=== PATIENT | male | born 1995 | race Caucasian/White ===

== ENCOUNTER 2017-06-18 21:40 | Emergency (ER) | payer OTHER ==
[2017-06-18 21:50] VITALS: BP 144/82; PULSE 65; RESP 18; TEMP 97.9; O2SAT 98
--- NOTE | 2017-06-18 22:02 | EDPHY ---
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 He slice this on a daily slicer at 7:00 a.m.. The he had worked all day in could not come to the emergency room until now it has been 15 hours. Of note the thumb laceration is avulsion of the tip of the thumb. There is no laceration no close. The nail bed is intact. The wound is clean. And not bleeding. Will provide an appropriate dressing. Will refer to Hand surgery for follow-up. Past Medical History: No significant medical history Past Surgical History: No significant surgical history Social History: Daily tobacco use, denies illicit drugs or alcohol. Family History: Noncontributory ROS REVIEW OF SYSTEMS: A comprehensive 10 point review of systems is otherwise negative aside from elements mentioned in the history of present illness. Exam Constitutional triage nursing summary reviewed, vital signs reviewed, awake/ alert. Eyes normal conjunctivae and sclera, EOMI, PERRLA. HENT normal inspection, atraumatic, moist mucus membranes, no epistaxis, neck supple/ no meningismus, no raccoon eyes. Respiratory clear to auscultation bilaterally, normal breath sounds, no respiratory distress, no wheezing. Cardiovascular rate normal, regular rhythm, no murmur, no edema, distal pulses normal. Gastrointestinal soft, non-tender, no rebound, no guarding, normal bowel sounds, no distension, no pulsatile mass. Genitourinary no CVA tenderness. Musculoskeletal no midline vertebral tenderness, full range of motion, no calf swelling, no tenderness of extremities, no meningismus, good pulses, neurovascularly intact. Right hand: Distal aspect of the thumb lateral aspect there is an avulsion laceration. Avulsion tip of the lateral left thumb. No nail bed involvement. No arterial vomit. No laceration needs to be repaired. Skin pink, warm, & dry, no rash, skin atraumatic. Neurologic awake, alert and oriented x 3, AAOx3, moves all 4 extremities equally, motor intact, sensory intact, CN II-XII intact, normal cerebellar, normal vision, normal speech. Psychiatric normal mood/affect. Heme/Lymph/Immune no lymphadenopathy. Differential Diagnosis: Includes but is not limited to in a particular order thumb avulsion laceration the thumb tip:, soft tissue injury Medical Decision Making: This patient appropriate dressing and finger splint. Will refer to Hand surgery. He does not need anything sutured here in emergency room is tetanus shot is up- to-date. Patient understands to keep it clean, dry and intact. Source: Patient - Personal History Current Tetanus/Diphtheria Vaccine: Unsure Current Tetanus Diphtheria and Acellular Pertussis (TDAP): Unsure - Medical/Surgical History Hx Asthma: No Hx Chronic Respiratory Disease: No Hx Diabetes: No Hx Cardiac Disease: No Hx Renal Disease: No Hx Cirrhosis: No Hx Alcoholism: No Hx HIV/AIDS: No Hx Splenectomy or Spleen Trauma: No Other PMH: DEPRESSION. VERICOUS VEIN REMOVAL - Social History Smoking Status: Heavy smoker Constitutional: Initial Vital Signs Temperature (C) 36.6 C 06/18/17 21:47 Heart Rate 65 06/18/17 21:47 Respiratory Rate 18 06/18/17 21:47 Blood Pressure 144/82 H 06/18/17 21:47 O2 Sat (%) 98 06/18/17 21:47 O2 Delivery Mode Room Air Allergies/Adverse Reactions: No Known Allergies Allergy (Unverified 06/18/17 21:50) Home Medications: Medication Instructions Recorded Sertraline HCl 06/18/17 Departure - Departure Disposition: Home, Routine, Self-Care Clinical Impression: Thumb laceration Qualifiers: Encounter type: initial encounter Damage to nail status: without damage Foreign body presence: without foreign body Laterality: right Qualified Code(s) : S61.011A - Laceration without foreign body of right thumb without damage to nail, initial encounter Condition: Good Instructions: Laceration (ED) Additional Instructions: 1. Keep her wound clean, dry and intact. 2. Finger splint for safety and protection. 3. Follow up with Hand surgery. 4. Watch for signs of infection this includes increasing swelling, pain, redness , drainage. Referrals: Danial Pang MD [Medical Doctor] - As per Instructions
== END 2017-06-18 22:19 | disposition home or self-care (01) ==
DX: S61.011A Laceration without foreign body of right thumb without damage to nail, initial encounter (principal); F17.200 Nicotine dependence, unspecified, uncomplicated; W26.8XXA Contact with other sharp object(s), not elsewhere classified, initial encounter; Y99.8 Other external cause status; Y93.89 Activity, other specified
CPT/HCPCS: L3925